=== PATIENT | male | born 1995 | race Caucasian/White ===

== ENCOUNTER 2016-06-18 21:46 | Emergency (ER) | payer BC, MEDICAID ==
[2016-06-18] MEDS ORDERED: ONDANSETRON ODT 4 MG TABLET TL STA (22:23)
[2016-06-18] MEDS ORDERED: ONDANSETRON ODT 4 MG TABLET ONE (22:26)
== END 2016-06-19 00:47 | disposition home or self-care (01) ==
DX: K92.0 Hematemesis (principal); R11.0 Nausea; J45.909 Unspecified asthma, uncomplicated; F17.200 Nicotine dependence, unspecified, uncomplicated
CPT/HCPCS: 36415; 80053; 81003; 83690; 85025; 99283; Q0162

== ENCOUNTER 2016-09-13 12:30 | Emergency (ER) | payer BC ==
[2016-09-13 12:36] VITALS: BP 119/78
--- NOTE | 2016-09-13 12:44 | ED Physician Documentation ---
History of Present Illness - Stated complaint Stated Complaint: MALE - Chief complaint Chief Complaint: General - History obtained from History obtained from: Patient - Additonal information Additional information: Since waking up a few hours ago he's had severe urinary frequency and dysuria without back pain or testicular pain. Not currently sexually active. No history of STD or UTI the Review of Systems Constitutional: denies: Fever, Chills GI: denies: Abdominal Pain, Nausea : reports: Dysuria, Frequency. denies: Hesitancy, Incontinent, Hematuria, Discharge Musculoskeletal: denies: Neck pain, Back pain PD PAST MEDICAL HISTORY - Past Medical History Respiratory: Asthma - Past Surgical History Past Surgical History: No - Present Medications Home Medications: Ambulatory Orders Medication Instructions Recorded Confirmed Doxycycline Hyclate 100 mg PO BID #14 tablet 09/13/16 Phenazopyridine HCl [Pyridium] 200 mg PO TID #6 tablet 09/13/16 - Allergies Allergies/Adverse Reactions: Allergies Allergy/AdvReac Type Severity Reaction Status Date / Time No Known Drug Allergies Allergy Verified 09/13/16 12:49 - Social History Does the pt smoke?: Yes Smoking Status: Current every day smoker Does the pt drink ETOH?: Yes Does the pt have substance abuse?: No PD ED PE NORMAL - Vitals Vital signs reviewed: Yes - General General: Alert and oriented X 3, No acute distress - Abdomen Abdomen: Soft, Non tender - Male Male : Other (No inguinal adenopathy, no discharge, he is circumcised, testicles have normal lie and are nontender. No rashes.) - Neuro Neuro: Alert and oriented X 3, Normal speech - Psych Psych: Normal mood, Normal affect Results - Vitals Vitals: Vital Signs - 24 hr 09/13/16 12:33 Temperature 36.6 C Heart Rate 94 Respiratory 18 Rate Blood Pressure 119/78 O2 Saturation 99 Oxygen O2 Source Room air - Labs Labs: Laboratory Tests 09/13/16 12:44 Urine Color LT. YELLOW Urine Clarity CLEAR Urine pH 7.0 Ur Specific [place] <=1.005 Urine Protein NEGATIVE Urine Glucose (UA) NEGATIVE Urine Ketones NEGATIVE Urine Occult Blood NEGATIVE Urine Nitrite NEGATIVE Urine Bilirubin NEGATIVE Urine Urobilinogen 0.2 (NORMAL) Ur Leukocyte Esterase NEGATIVE Ur Microscopic Review NOT INDICATED Urine Culture Comments NOT INDICATED PD MEDICAL DECISION MAKING - ED course ED course: Symptoms quite consistent with urethritis, UA negative. We'll treat for that. Departure - Departure Disposition: 01 Home, Self Care Clinical Impression: Urethritis Condition: Good Record reviewed to determine appropriate education?: Yes Instructions: ED Urethritis Infec Vs Inflam Male Prescriptions: Doxycycline Hyclate 100 mg PO BID #14 tablet Phenazopyridine HCl [Pyridium] 200 mg PO TID #6 tablet Comments: The pyridium should help with your symptoms while the antibiotics are kicking in. Return if worse or if not better in 2 days time. Followup with your family doctor within the week. As discussed, do not go out in the sun too much while on the antibiotics.
[2016-09-13 12:51] LABS: BILIRUBIN,URINE NEGATIVE (NEGATIVE)
[2016-09-13 12:57] LABS: UA CHARGE (STRIP ONLY) YES; UR CULTURE IF IND NOT INDICATED
[2016-09-13] MEDS ORDERED: cefTRIAXone 250 MG VIAL IM STA (13:15)
[2016-09-13] MEDS ORDERED: PHENAZOPYRIDINE 100 MG TABLET PO STA (13:15)
[2016-09-13] MEDS ORDERED: LIDOCAINE 1% 2 ML VIAL ONE (13:18)
[2016-09-13] MEDS ORDERED: cefTRIAXone 250 MG VIAL ONE (13:18)
[2016-09-13] MEDS ORDERED: PHENAZOPYRIDINE 100 MG TABLET PO ONE (13:18)
== END 2016-09-13 13:31 | disposition home or self-care (01) ==
LOC: ED 12:30
DX: N34.2 Other urethritis (principal); F17.200 Nicotine dependence, unspecified, uncomplicated
CPT/HCPCS: 81003; 87491; 87591; 96372; 99283; A9270; 81001; 87086

== ENCOUNTER 2017-01-27 12:39 | Emergency (ER) | payer BC, MEDICAID ==
[2017-01-27 12:46] VITALS: BP 116/69
[2017-01-27 13:07] LABS: RAPID STREP SCREEN REAGENT QC YELLOW (YELLOW)
--- NOTE | 2017-01-27 14:45 | ED Physician Documentation ---
PD HPI URI - Stated complaint Stated Complaint: THROAT PX - Chief complaint Chief Complaint: Heent - History obtained from History obtained from: Patient - History of Present Illness Timing - onset: How many days ago Timing duration: Days Timing details: Gradual onset, Still present Associated symptoms: Chills, Nasal congestion, Sinus pain, Sore throat. No: Fever, Dry cough, Productive cough, Chest pain Contributing factors: No: Sick contact, Travel, Immunocompromised Similar symptoms before: Has not had sx before Recently seen: Not recently seen Review of Systems Constitutional: reports: Chills, Myalgias. denies: Fever Nose: reports: Congestion, Sinus pressure / pain Throat: reports: Sore throat Respiratory: reports: Cough GI: denies: Nausea, Vomiting, Diarrhea Skin: denies: Rash PD PAST MEDICAL HISTORY - Past Medical History Respiratory: Asthma - Past Surgical History Past Surgical History: No - Present Medications Home Medications: Ambulatory Orders Medication Instructions Recorded Confirmed Doxycycline Hyclate 100 mg PO BID #14 tablet 09/13/16 01/27/17 Phenazopyridine HCl [Pyridium] 200 mg PO TID #6 tablet 09/13/16 01/27/17 Amoxicillin 500 mg PO TID #20 capsule 01/27/17 Cetirizine [ZyrTEC] 10 mg PO DAILY #20 tablet 01/27/17 Dexamethasone [Decadron] 4 mg PO DAILY #5 tablet 01/27/17 HYDROcod/ACETAM 5/325 [[place] 5/325] 1 tab PO Q6H PRN #12 tablet 01/27/17 - Allergies Allergies/Adverse Reactions: Allergies Allergy/AdvReac Type Severity Reaction Status Date / Time No Known Drug Allergies Allergy Verified 09/13/16 12:49 - Social History Does the pt smoke?: Yes Smoking Status: Current every day smoker Does the pt drink ETOH?: Yes Does the pt have substance abuse?: No - Immunizations Immunizations are current?: Yes - POLST Patient has POLST: No PD ED PE NORMAL - Vitals Vital signs reviewed: Yes - General General: Alert and oriented X 3, No acute distress, Well developed/nourished - HEENT HEENT: Ears normal, Moist mucous membranes, Pharynx benign - Neck Neck: Supple, no meningeal sign, Other (anterior nodes) - Cardiac Cardiac: RRR, No murmur - Respiratory Respiratory: Clear bilaterally - Abdomen Abdomen: Soft, Non tender Results - Vitals Vitals: Oxygen O2 Source Room air - Labs Labs: Microbiology 01/27/17 12:57 Group A Strep Throat Culture - Final Throat MIXED OROPHARYNGEAL NOEMI PRESENT. NO BETA STREP PRESENT IN CULTURE. Laboratory Tests 01/27/17 12:57 Group A Strep Rapid Negative PD MEDICAL DECISION MAKING - ED course Complexity details: considered differential (symptoms sound more like coming from sinus infection. ), d/w patient Departure - Departure Disposition: 01 Home, Self Care Clinical Impression: Upper respiratory infection Qualifiers: URI type: unspecified URI Qualified Code(s): J06.9 - Acute upper respiratory infection, unspecified Sinusitis Qualifiers: Sinusitis location: unspecified location Chronicity: acute Recurrence: non- recurrent Qualified Code(s): J01.90 - Acute sinusitis, unspecified Condition: Stable Record reviewed to determine appropriate education?: Yes Instructions: ED Sinusitis Abx Tx Prescriptions: Amoxicillin 500 mg PO TID #20 capsule Cetirizine [ZyrTEC] 10 mg PO DAILY #20 tablet Dexamethasone [Decadron] 4 mg PO DAILY #5 tablet HYDROcod/ACETAM 5/325 [[place] 5/325] 1 tab PO Q6H PRN #12 tablet PRN Reason: Pain Comments: Drink lots of fluids. Continue some ibuprofen 2-3 times a day. Add Tylenol or hydrocodone if needed for pains. For the infection use amoxicillin 3 times a day for a week. Decadron daily for 5 days will decrease the inflammation and help the pain as well. Cetirizine daily for couple of weeks for the congestion. Recheck if not improving over the next several days. Discharge Date/Time: 01/27/17 15:13
== END 2017-01-27 15:13 | disposition home or self-care (01) ==
LOC: ED 12:39
DX: J06.9 Acute upper respiratory infection, unspecified (principal); J01.90 Acute sinusitis, unspecified; J45.909 Unspecified asthma, uncomplicated; F17.200 Nicotine dependence, unspecified, uncomplicated
CPT/HCPCS: 87070; 87430; 99283

== ENCOUNTER 2017-09-15 11:19 | Emergency (ER) | payer BC, MEDICAID ==
--- NOTE | 2017-09-15 12:13 | ED Physician Documentation ---
PD HPI MALE - Stated complaint Stated Complaint: MALE - Chief complaint Chief Complaint: General - History obtained from History obtained from: Patient - History of Present Illness Timing - onset: Today Timing - duration: Days (1) Timing - details: Abrupt onset, Still present Associated symptoms: Dysuria, Urinary frequency. No: Discharge, Genital sore / lesion, Testiclar pain, Scrotal swelling PD HPI MALE CONTRIB FACTORS: Sexually active Similar symptoms before: Diagnosis (urethritis in the past, improved with Doxycycline) Recently seen: Not recently seen Review of Systems Constitutional: denies: Fever, Chills Throat: denies: Sore throat : reports: Dysuria. denies: Discharge Skin: denies: Rash, Lesions PD PAST MEDICAL HISTORY - Past Medical History Past Medical History: Yes Respiratory: Asthma - Past Surgical History Past Surgical History: No - Present Medications Home Medications: Ambulatory Orders Medication Instructions Recorded Confirmed Doxycycline Hyclate 100 mg PO BID #14 tablet 09/13/16 01/27/17 Phenazopyridine HCl [Pyridium] 200 mg PO TID #6 tablet 09/13/16 01/27/17 Amoxicillin 500 mg PO TID #20 capsule 01/27/17 Cetirizine [ZyrTEC] 10 mg PO DAILY #20 tablet 01/27/17 Dexamethasone [Decadron] 4 mg PO DAILY #5 tablet 01/27/17 HYDROcod/ACETAM 5/325 [[place] 5/325] 1 tab PO Q6H PRN #12 tablet 01/27/17 Doxycycline Monohydrate 100 mg PO BID #14 tablet 09/15/17 Phenazopyridine [Pyridium] 100 mg PO TID PRN #15 tablet 09/15/17 - Allergies Allergies/Adverse Reactions: Allergies Allergy/AdvReac Type Severity Reaction Status Date / Time No Known Drug Allergies Allergy Verified 09/13/16 12:49 - Social History Does the pt smoke?: Yes Smoking Status: Current every day smoker Does the pt drink ETOH?: Yes Does the pt have substance abuse?: No - Immunizations Immunizations are current?: No - POLST Patient has POLST: No PD ED PE NORMAL - Vitals Vital signs reviewed: Yes - General General: Alert and oriented X 3, No acute distress, Well developed/nourished - HEENT HEENT: Pharynx benign - Male Male : Other (no sores, no adenopathy. No noted discharge. ) - Rectal Rectal: Deferred - Back Back: No CVA TTP - Derm Derm: Normal color, Warm and dry Results - Vitals Vitals: Oxygen O2 Source Room air - Labs Labs: Laboratory Tests 09/15/17 11:45 Urine Color YELLOW Urine Clarity CLEAR Urine pH 6.0 Ur Specific [place] 1.010 Urine Protein NEGATIVE Urine Glucose (UA) NEGATIVE Urine Ketones NEGATIVE Urine Occult Blood NEGATIVE Urine Nitrite NEGATIVE Urine Bilirubin NEGATIVE Urine Urobilinogen 0.2 (NORMAL) Ur Leukocyte Esterase NEGATIVE Ur Microscopic Review NOT INDICATED Urine Culture Comments NOT INDICATED PD MEDICAL DECISION MAKING - ED course Complexity details: considered differential (urethritis in sexually active male. ), d/w patient - Sepsis Event Vital Signs: Oxygen O2 Source Room air Departure - Departure Disposition: 01 Home, Self Care Clinical Impression: Dysuria, Urethritis, nonspecific Condition: Stable Record reviewed to determine appropriate education?: Yes Instructions: ED Urethritis Infec Vs Inflam Male Prescriptions: Doxycycline Monohydrate 100 mg PO BID #14 tablet Phenazopyridine [Pyridium] 100 mg PO TID PRN #15 tablet PRN Reason: Pain Comments: Drink lots of fluids. Use ibuprofen or naproxen if needed for discomfort. Phenazopyridine can be taken to decrease it discomfort of urination. It asked to numb the bladder and will turn urine slightly orange colored so not to worry. Doxycycline antibiotic twice a day for a week. The symptoms should improve over the next 2-3 days. Recheck if not improving. Forms: Activity restrictions Discharge Date/Time: 09/15/17 13:21
[2017-09-15 12:16] LABS: BILIRUBIN,URINE NEGATIVE (NEGATIVE); GLUCOSE, URINE (UA) NEGATIVE (NEGATIVE); KETONES,URINE (UA) NEGATIVE (NEGATIVE); LEUKOCYTE ESTERASE, URINE NEGATIVE (NEGATIVE); NITRITE,URINE NEGATIVE (NEGATIVE); OCCULT BLOOD,URINE NEGATIVE (NEGATIVE); PROTEIN,URINE NEGATIVE (NEGATIVE); UROBILINOGEN,URINE 0.2 (NORMAL) E.U./dL (NORMAL)
[2017-09-15 12:17] LABS: CLARITY,URINE CLEAR (CLEAR)
[2017-09-15] MEDS ORDERED: PHENAZOPYRIDINE 100 MG TABLET PO STA (12:24)
[2017-09-15] MEDS ORDERED: LIDOCAINE 1% 2 ML VIAL SUBQ ONE (12:24)
[2017-09-15] MEDS ORDERED: DOXYCYCLINE 100 MG TABLET PO STA (12:24)
[2017-09-15] MEDS ORDERED: cefTRIAXone 500 MG VIAL IM STA (12:24)
[2017-09-15 13:16] VITALS: BP 117/67
== END 2017-09-15 13:21 | disposition home or self-care (01) ==
LOC: ED 11:19
DX: R30.0 Dysuria (principal); N34.2 Other urethritis; F17.200 Nicotine dependence, unspecified, uncomplicated
CPT/HCPCS: 81003; 96372; 99283; A9270; 81001; 87086

== ENCOUNTER 2018-04-21 18:48 | Emergency (ER) | payer BC, MEDICAID ==
[2018-04-21] MEDS ORDERED: TETANUS/DIPHTHERIA/PERTUSSIS 0.5 ML SYRINGE IM ONE (19:05)
--- NOTE | 2018-04-21 19:52 | XRAY Report ---
Reason: nail through hand Procedure Date: 04/21/2018 Accession Number: [id number] / [id number] Procedure: XR - Hand 3 View RT CPT Code: FULL RESULT: EXAM: RIGHT HAND RADIOGRAPHY EXAM DATE: 04/21/2018 07:12 PM. CLINICAL HISTORY: Wire through hand. COMPARISON: None. TECHNIQUE: 3 views. FINDINGS: Bones: Normal. No fractures or bone lesions. Joints: Normal. No subluxations. Soft Tissues: No radiopaque foreign body. Soft tissue swelling. IMPRESSION: No radiopaque foreign body RADIA
--- NOTE | 2018-04-21 20:06 | ED Physician Documentation ---
PD HPI UPPER EXT INJURY - Stated complaint Stated Complaint: RT HAND VS NAIL - Chief complaint Chief Complaint: Wound - History obtained from History obtained from: Patient - History of Present Illness Location: Right Type of injury: Puncture wound Where injury occurred: Home Timing - onset: How many minutes ago (30) Timing - duration: Minutes (30) Timing - details: Abrupt onset Pain level max: 5 Pain level now: 3 Severity Comments: mild Improved by: Rest Worsened by: Moving Associated symptoms: No: Weakness, Numbness Contributing factors: No: Anticoagulated, Prior ortho surgery Review of Systems Ten Systems: 10 systems reviewed and negative Constitutional: reports: Reviewed and negative Eyes: reports: Reviewed and negative Ears: reports: Reviewed and negative Nose: reports: Reviewed and negative Throat: reports: Reviewed and negative Cardiac: reports: Reviewed and negative Respiratory: reports: Reviewed and negative GI: reports: Reviewed and negative : reports: Reviewed and negative Skin: reports: Reviewed and negative Musculoskeletal: reports: Reviewed and negative Neurologic: reports: Reviewed and negative Psychiatric: reports: Reviewed and negative Endocrine: reports: Reviewed and negative Immunocompromised: reports: Reviewed and negative PD PAST MEDICAL HISTORY - Past Medical History Past Medical History: Yes Respiratory: Asthma Other Past Medical History: asthma as child - Past Surgical History Past Surgical History: No Other past surgical history: Reviewed and not pertinent - Present Medications Home Medications: Ambulatory Orders Medication Instructions Recorded Confirmed Doxycycline Hyclate 100 mg PO BID #14 tablet 09/13/16 01/27/17 Phenazopyridine HCl [Pyridium] 200 mg PO TID #6 tablet 09/13/16 01/27/17 Amoxicillin 500 mg PO TID #20 capsule 01/27/17 Cetirizine [ZyrTEC] 10 mg PO DAILY #20 tablet 01/27/17 Dexamethasone [Decadron] 4 mg PO DAILY #5 tablet 01/27/17 HYDROcod/ACETAM 5/325 [[place] 5/325] 1 tab PO Q6H PRN #12 tablet 01/27/17 Doxycycline Monohydrate 100 mg PO BID #14 tablet 09/15/17 Phenazopyridine [Pyridium] 100 mg PO TID PRN #15 tablet 09/15/17 Amox/Clav 875/125 [Augmentin] 1 each PO Q12H #20 tablet 04/21/18 - Allergies Allergies/Adverse Reactions: Allergies Allergy/AdvReac Type Severity Reaction Status Date / Time No Known Drug Allergies Allergy Verified 09/13/16 12:49 - Living Situation Living Situation: reports: Alone Living Arrangement: reports: At home - Social History Does the pt smoke?: Yes Smoking Status: Current every day smoker Does the pt drink ETOH?: No Does the pt have substance abuse?: No Substance Use and Type: Marijuana - Family History Family history: reports: Other (Reviewed and not pertinent) - Immunizations Immunizations are current?: No - POLST Patient has POLST: No PD ED PE NORMAL - Vitals Vital signs reviewed: Yes - General General: Alert and oriented X 3, No acute distress - HEENT HEENT: PERRL - Neck Neck: Supple, no meningeal sign - Cardiac Cardiac: RRR, No murmur - Respiratory Respiratory: Clear bilaterally - Abdomen Abdomen: Normal bowel sounds, Soft, Non tender, Non distended - Derm Derm: Warm and dry - Extremities Extremities: Other (Puncture wound to the palm of the right hand.) - Neuro Neuro: Alert and oriented X 3 - Psych Psych: Normal mood, Normal affect Results - Vitals Vitals: Vital Signs - 24 hr 04/21/18 04/21/18 18:50 20:11 Temperature 36.8 C Heart Rate 88 75 Respiratory 16 16 Rate Blood Pressure 125/69 122/71 O2 Saturation 100 100 Oxygen O2 Source Room air - Rads (name of study) Hand XRAY Radiology: Final report received, Other (WNL) PD MEDICAL DECISION MAKING - ED course Complexity details: reviewed results, re-evaluated patient, considered differential, d/w patient, d/w family ED course: 22-year-old male with puncture wound to the right hand. Tetanus updated. Irrigated. Discharge with Augmentin. PCP follow-up. Departure - Departure Disposition: Home, Self Care Clinical Impression: Puncture wound, hand Qualifiers: Encounter type: initial encounter Foreign body presence: with foreign body Laterality: right Qualified Code(s): S61.441A - Puncture wound with foreign body of right hand, initial encounter Condition: Good Instructions: ED Wound Puncture General Follow-Up: Your, pcp [Other] Prescriptions: Amox/Clav 875/125 [Augmentin] 1 each PO Q12H #20 tablet Comments: Antibiotics as prescribed. Follow-up with PCP for recheck within 24 hours. Return with worsening symptoms. Discharge Date/Time: 04/21/18 20:12
[2018-04-21 20:12] VITALS: BP 122/71
== END 2018-04-21 20:12 | disposition home or self-care (01) ==
LOC: ED 18:48
DX: S61.441A Puncture wound with foreign body of right hand, initial encounter (principal); W45.8XXA Other foreign body or object entering through skin, initial encounter; Z23 Encounter for immunization
CPT/HCPCS: 90471; 99283

== ENCOUNTER 2018-04-22 13:49 | Emergency (ER) | payer MEDICAID ==
--- NOTE | 2018-04-22 14:12 | ED Physician Documentation ---
PD HPI WOUND RECHECK - Stated complaint Stated Complaint: WOUND CHECK - Histroy obtained from History obtained from: Patient - History of Present Illness Location: Right Hand Timing - onset: Yesterday Similar symptoms before: Has not had sx before Recently seen: Emergency Dept (had puncture wound from nail into palm yesterday and seen in ED with cleansing and started on abx. Told in instructions to be rechecked within 24 hours. Could not get into PCP so came here. He says it hurts with use. No numbness nor weakness.) Review of Systems Constitutional: denies: Fever, Chills Neurologic: denies: Focal weakness, Numbness PD PAST MEDICAL HISTORY - Past Medical History Respiratory: Asthma - Past Surgical History Past Surgical History: No - Present Medications Home Medications: Ambulatory Orders Medication Instructions Recorded Confirmed Amox/Clav 875/125 [Augmentin] 1 each PO Q12H #20 tablet 04/21/18 Acetaminophen [Tylenol Extra 04/22/18 Strength] Naproxen 500 mg PO BID #20 tablet 04/22/18 - Allergies Allergies/Adverse Reactions: Allergies Allergy/AdvReac Type Severity Reaction Status Date / Time No Known Drug Allergies Allergy Verified 04/22/18 14:13 - Social History Does the pt smoke?: Yes Smoking Status: Current every day smoker Does the pt drink ETOH?: No Does the pt have substance abuse?: No - Immunizations Immunizations are current?: No - POLST Patient has POLST: No PD ED PE NORMAL - Vitals Vital signs reviewed: Yes - General General: Alert and oriented X 3, No acute distress, Well developed/nourished - Derm Derm: Normal color, Warm and dry - Extremities Extremities: Other (right palm with small puncture wound. No redness nor discharge. ) - Neuro Neuro: No motor deficit, No sensory deficit Results - Vitals Vitals: Oxygen O2 Source Room air PD MEDICAL DECISION MAKING - ED course Complexity details: reviewed old records (chart from ER visit. I don't really see any red flags or concerns that led to recommendation to be rechecked in 24 hours. Patient seems okay.), considered differential, d/w patient Departure - Departure Disposition: Home, Self Care Clinical Impression: Visit for wound check Condition: Stable Record reviewed to determine appropriate education?: Yes Instructions: ED Wound Puncture General Prescriptions: Naproxen 500 mg PO BID #20 tablet Comments: Cleanse the area with soap and water and apply ointment 2-3 times a day. You can add an anti-inflammatory such as ibuprofen or naproxen 2-3 times daily for the next several days. I did write a prescription if that is more useful. I presume this will be sore for a few days and then improved. Recheck if signs of infection. Discharge Date/Time: 04/22/18 15:29
[2018-04-22] MEDS ORDERED: NAPROXEN 250 MG TABLET PO STA (15:20)
[2018-04-22 15:29] VITALS: BP 111/67
== END 2018-04-22 15:29 | disposition home or self-care (01) ==
LOC: ED 13:49
DX: S61.431D Puncture wound without foreign body of right hand, subsequent encounter (principal); W45.0XXD Nail entering through skin, subsequent encounter; F17.200 Nicotine dependence, unspecified, uncomplicated
CPT/HCPCS: 99281; 99282; A9270

== ENCOUNTER 2018-12-08 17:07 | Emergency (ER) | payer MEDICAID ==
[2018-12-08 17:12] VITALS: BP 137/94
[2018-12-08] MEDS ORDERED: AMOX/CLAV 875 MG/125 MG TABLET PO STA (17:31)
[2018-12-08] MEDS ORDERED: oxyCODONE 5 MG TABLET PO STA (17:32)
[2018-12-08] MEDS ORDERED: ACETAMINOPHEN 325 MG TABLET PO STA (17:32)
--- NOTE | 2018-12-08 17:34 | ED Physician Documentation ---
History of Present Illness - Stated complaint Stated Complaint: TOOTH PX - Chief complaint Chief Complaint: Heent - Additonal information Additional information: This is a 23-year-old male who presents with dental pain. Patient states that he has not seen a dentist since the time he was a kid, and he has had multiple toothaches for months. The worst pain is in the left upper part of his mouth. He has noticed some erosions along the gumline on the teeth. He has some sensitivity to hot and cold foods. The pain is bad enough now that it now intermittently wakes him up at night. He has an appoint with a dentist next Friday. No fever, chills, neck pain. He has not been on antibiotics recently. No drug use, although patient does smoke cigarettes and he is trying to quit. Review of Systems Constitutional: denies: Fever Throat: reports: Dental pain / toothache Immunocompromised: denies: Immunocompromised PD PAST MEDICAL HISTORY - Past Medical History Respiratory: Asthma - Past Surgical History Past Surgical History: No - Present Medications Home Medications: Ambulatory Orders Medication Instructions Recorded Confirmed Amox/Clav 875/125 [Augmentin] 1 each PO Q12H #20 tablet 04/21/18 Acetaminophen [Tylenol Extra 04/22/18 Strength] Naproxen 500 mg PO BID #20 tablet 04/22/18 Amox/Clav 875/125 [Augmentin] 1 each PO Q12H #14 tablet 12/08/18 Hydrocodone/Acetaminophen 1 - 2 each PO Q6H PRN #5 tablet 12/08/18 [Hydrocodon-Acetaminophen 5-325] - Allergies Allergies/Adverse Reactions: Allergies Allergy/AdvReac Type Severity Reaction Status Date / Time No Known Drug Allergies Allergy Verified 12/08/18 17:11 - Social History Does the pt smoke?: Yes Smoking Status: Current every day smoker Does the pt drink ETOH?: No Does the pt have substance abuse?: No - Immunizations Immunizations are current?: No - POLST Patient has POLST: No PD ED PE NORMAL - Vitals Vital signs reviewed: Yes - General General: Alert and oriented X 3, No acute distress - HEENT HEENT: Other (Generally poor dentition, there are multiple erosions Through the enamel of Multiple teeth, most prominent over teeth 12 And 13. There is no gingival abscess. [place] and gingivitis present. The uvula is midline.) - Neck Neck: Supple, no meningeal sign - Cardiac Cardiac: Other (Warm, well-perfused extremities. Regular rate) - Respiratory Respiratory: No respiratory distress - Abdomen Abdomen: Non distended - Derm Derm: Warm and dry - Extremities Extremities: No deformity - Neuro Neuro: Alert and oriented X 3 - Psych Psych: Normal mood, Normal affect Results - Vitals Vitals: Vital Signs - 24 hr 12/08/18 17:09 Temperature 36.2 C L Heart Rate 73 Respiratory 19 Rate Blood Pressure 137/94 H O2 Saturation 98 Oxygen O2 Source Room air PD MEDICAL DECISION MAKING - ED course ED course: Patient presents with dental pain. He has poor dentition with multiple caries which are likely causing him pulpitis based on his symptoms. He has an appoint with a dentist in 1 week. There are no signs of deep space infection, facial cellulitis, or drainable abscess today. I gave patient 1 dose of oxycodone and acetaminophen here as well as his first dose of Augmentin. I prescribed him a 7-day course of Augmentin which will cover him until he sees his dentist. I also prescribed him a small number of Percocet to be used for breakthrough pain not managed by Tylenol and ibuprofen alone, with instructions on the risks of narcotic medications reviewed. I discussed return precautions including signs of worsening infection, and patient was discharged home. Departure - Departure Disposition: 01 Home, Self Care Clinical Impression: Pain due to dental caries Condition: Good Instructions: ED Tooth Pain Follow-Up: Your,Dentist [Other] (As soon as possible) Prescriptions: Amox/Clav 875/125 [Augmentin] 1 each PO Q12H #14 tablet Hydrocodone/Acetaminophen [Hydrocodon-Acetaminophen 5-325] 1 - 2 each PO Q6H PRN #5 tablet PRN Reason: pain Comments: Please follow-up with your dentist as soon as possible. Take the entire course of antibiotics unless your dentist tells you otherwise. Return to the emergency department if you develop any redness or swelling of your face, inability to open or close your jaw, neck pain, or fever. Do not drink alcohol or drive while taking narcotic pain medication. Note that many narcotic pain relievers also contain Tylenol/acetaminophen. Please ensure that your total dose of acetaminophen from all sources does not exceed 3 g (3000 mg) per day. You may get constipated while on this medication. Take a stool softener such as Colace twice a day while you are on it. Also add an [id number] laxative such as senna or MiraLAX on any day that you do not have a bowel movement. If you received a narcotic pain medication or sedative while in the emergency department, do not drive for the next 12 hours.
== END 2018-12-08 17:46 | disposition home or self-care (01) ==
LOC: ED 17:07
DX: K03.2 Erosion of teeth (principal); K02.9 Dental caries, unspecified; K05.10 Chronic gingivitis, plaque induced; F17.210 Nicotine dependence, cigarettes, uncomplicated
CPT/HCPCS: 99282; 99284; A9270

== ENCOUNTER 2019-01-14 13:23 | Emergency (ER) | payer MEDICAID ==
[2019-01-14 13:37] VITALS: BP 118/70
[2019-01-14] MEDS ORDERED: oxyCODONE 5 MG TABLET PO STA (14:54)
--- NOTE | 2019-01-14 14:56 | ED Physician Documentation ---
History of Present Illness - Stated complaint Stated Complaint: TOOTH PX - Chief complaint Chief Complaint: Heent - History obtained from History obtained from: Patient - History of Present Illness Timing: Other (23-year-old gentleman with ongoing problems with his teeth. He was seen here about a month and a half ago, prescribed oxycodone and Augmentin which helped for a while. Subsequently did follow-up with a dentist, was told he needed 3 root canals and is scheduled for that but not until March. Has a lot of pain from teeth, the worst of which are on the right maxilla. No fevers or facial swelling.) Review of Systems Constitutional: reports: Reviewed and negative Nose: reports: Reviewed and negative Cardiac: reports: Reviewed and negative PD PAST MEDICAL HISTORY - Past Medical History Respiratory: Asthma - Past Surgical History Past Surgical History: No - Present Medications Home Medications: Ambulatory Orders Medication Instructions Recorded Confirmed Amox/Clav 875/125 [Augmentin] 1 each PO Q12H #20 tablet 04/21/18 Acetaminophen [Tylenol Extra 04/22/18 Strength] Naproxen 500 mg PO BID #20 tablet 04/22/18 Amox/Clav 875/125 [Augmentin] 1 each PO Q12H #14 tablet 12/08/18 Hydrocodone/Acetaminophen 1 - 2 each PO Q6H PRN #5 tablet 12/08/18 [Hydrocodon-Acetaminophen 5-325] Amox/Clav 875/125 [Augmentin] 1 each PO Q12H #20 tablet 01/14/19 Oxycodone HCl/Acetaminophen 1 - 2 each PO Q6H PRN #14 tablet 01/14/19 [Percocet 5-325 mg Tablet] - Allergies Allergies/Adverse Reactions: Allergies Allergy/AdvReac Type Severity Reaction Status Date / Time No Known Drug Allergies Allergy Verified 12/08/18 17:11 - Social History Does the pt smoke?: Yes Smoking Status: Current every day smoker Does the pt drink ETOH?: No Does the pt have substance abuse?: No - Immunizations Immunizations are current?: No - POLST Patient has POLST: No PD ED PE NORMAL - Vitals Vital signs reviewed: Yes - General General: Alert and oriented X 3, No acute distress - HEENT HEENT: Other (There is a lot of enamel breakdown along the gumline laterally of right maxillary teeth with some gingivitis. No facial swelling. No trismus. No sublingual edema.) - Neck Neck: Supple, no meningeal sign, No bony TTP - Neuro Neuro: Alert and oriented X 3, Normal speech Results - Vitals Vitals: Vital Signs - 24 hr 01/14/19 13:35 Temperature 36.7 C Heart Rate 71 Respiratory 16 Rate Blood Pressure 118/70 O2 Saturation 100 Oxygen O2 Source Room air Departure - Departure Disposition: Home, Self Care Clinical Impression: Pain due to dental caries Condition: Good Record reviewed to determine appropriate education?: Yes Instructions: ED Tooth Pain Prescriptions: Amox/Clav 875/125 [Augmentin] 1 each PO Q12H #20 tablet Oxycodone HCl/Acetaminophen [Percocet 5-325 mg Tablet] 1 - 2 each PO Q6H PRN #14 tablet PRN Reason: pain Comments: It is very important that you follow-up with a dentist. When it comes to dental problems like yours, the emergency department can only offer a short-term solution to your long-term problem. A couple of low cost options for dental care include: [facility] in [place], calls [phone] for an appointment Or [facility] in [place], call [phone] for an appointment.
== END 2019-01-14 15:10 | disposition home or self-care (01) ==
LOC: ED 13:23
DX: K02.9 Dental caries, unspecified (principal); K05.10 Chronic gingivitis, plaque induced; F17.200 Nicotine dependence, unspecified, uncomplicated
CPT/HCPCS: 99282; 99283; A9270

== ENCOUNTER 2022-03-10 21:26 | Emergency (ER) | payer MEDICAID ==
--- NOTE | 2022-03-10 21:44 | ED Physician Documentation ---
PD HPI HEAD INJURY - Stated complaint Stated Complaint: HIT HEAD/POSS SEIZURE - Chief complaint Chief Complaint: Trauma Hd/Nk - History obtained from History obtained from: Patient - History of Present Illness Mechanism of head injury: Fell Where head injury occurred: Home Timing - onset: Enter time (20:50), Today Pain level now: 5 Location of injury: Left, Front, Back Quality of pain: Pain Associated symptoms: LOC. No: Neck pain, Paresthesias Contributing factors: No: Anticoagulated, Intoxicated Similar symptoms before: Has not had sx before Recently seen: Not recently seen - Additional information Additional information: patient was lying in bed, not quite asleep but "deeply relaxed" (per patient) when he got up to use bathroom. He was standing over the toilet when he felt lightheaded. Does not recall falling but woke on floor. Patient's heard him fall, immediately checked on him and found him unconscious and with generalized muscle tonic contractions, particularly BUE. She says the length of LOC was approximately 15 seconds, but that he then rapidly returned to baseline level of consciousness over the next several seconds. He has no seizure history, no h/o similar (syncopal) episodes. On this HPI, he c/o generalized headache. He thinks his head hit the bathtub and/or the toilet when he fell. Review of Systems Constitutional: reports: Reviewed and negative Eyes: reports: Reviewed and negative Cardiac: reports: Reviewed and negative Respiratory: reports: Reviewed and negative GI: reports: Reviewed and negative Musculoskeletal: reports: Reviewed and negative Neurologic: reports: Syncope, Headache, Head injury. denies: Focal weakness, Numbness PD PAST MEDICAL HISTORY - Past Medical History Respiratory: Asthma - Past Surgical History Past Surgical History: No - Present Medications Home Medications: Ambulatory Orders Medication Instructions Recorded Confirmed Amox/Clav 875/125 [Augmentin] 1 each PO Q12H #20 tablet 04/21/18 Acetaminophen [Tylenol Extra 04/22/18 Strength] Naproxen 500 mg PO BID #20 tablet 04/22/18 Amox/Clav 875/125 [Augmentin] 1 each PO Q12H #14 tablet 12/08/18 Hydrocodone/Acetaminophen 1 - 2 each PO Q6H PRN #5 tablet 12/08/18 [Hydrocodon-Acetaminophen 5-325] Amox/Clav 875/125 [Augmentin] 1 each PO Q12H #20 tablet 01/14/19 Oxycodone HCl/Acetaminophen 1 - 2 each PO Q6H PRN #14 tablet 01/14/19 [Percocet 5-325 mg Tablet] Amox/Clav 875/125 [Augmentin] 1 each PO Q12H #20 tablet 02/16/19 - Allergies Allergies/Adverse Reactions: Allergies Allergy/AdvReac Type Severity Reaction Status Date / Time No Known Drug Allergies Allergy Verified 03/10/22 21:43 - Social History Does the pt smoke?: Yes Smoking Status: Current every day smoker Does the pt drink ETOH?: No Does the pt have substance abuse?: No - Immunizations Immunizations are current?: No - POLST Patient has POLST: No PD ED PE NORMAL - Vitals Vital signs reviewed: Yes - General General: Alert and oriented X 3, No acute distress, Well developed/nourished - HEENT HEENT: PERRL, EOMI, Pharynx benign (no tongue bite/abrasion/echymosis), Other (right forehead swelling, linear abrasion, mild TTP) - Neck Neck: No bony TTP - Cardiac Cardiac: RRR, No murmur, No gallop, No rub - Respiratory Respiratory: No respiratory distress, Clear bilaterally - Abdomen Abdomen: Soft, Non tender - Back Back: No spinal TTP - Derm Derm: Normal color, Warm and dry - Extremities Extremities: No deformity, No tenderness to palpate, Normal ROM s pain - Neuro Neuro: Alert and oriented X 3, 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, No motor deficit, No sensory deficit, Normal speech Eye Opening: Spontaneous Motor: Obeys Commands Verbal: Oriented GCS Score: 15 Results - Vitals Vitals: Vital Signs - 24 hr 03/10/22 03/10/22 03/10/22 21:35 21:37 23:37 Temperature 36.1 C L 36.5 C 36.5 C Heart Rate 68 68 66 Respiratory 18 18 16 Rate Blood Pressure 110/69 110/69 112/72 O2 Saturation 100 100 100 Oxygen O2 Source Room air - EKG (time done) No standard instances Rate: Rate (enter#) (60) Rhythm: NSR [place]: Normal Intervals: Normal DC QRS: Normal Ischemia: Normal ST segments Other comments: Other comments (RSR' V1, V2) - Labs Labs: Laboratory Tests 03/10/22 03/10/22 03/10/22 21:59 21:59 21:59 WBC 8.9 RBC 4.62 L Hgb 14.4 Hct 42.0 MCV 90.9 MCH 31.2 H MCHC 34.3 RDW 12.3 Plt Count 284 MPV 8.8 Neut # (Auto) 6.0 Lymph # (Auto) 1.9 [place] # (Auto) 0.6 Eos # (Auto) 0.5 Baso # (Auto) 0.1 Absolute Nucleated RBC 0.00 Nucleated RBC % 0.0 Sodium 137 Potassium 3.3 L Chloride 100 L Carbon Dioxide 27 Anion Gap 10.0 BUN 17 Creatinine 1.0 Estimated GFR (MDRD) 90 Glucose 153 H POC Whole Bld Glucose Calcium 8.9 Total Bilirubin 0.7 AST 24 ALT 25 Alkaline Phosphatase 45 Troponin I High Sens < 2.3 L Total Protein 7.4 Albumin 4.3 Globulin 3.1 Albumin/Globulin Ratio 1.4 Lipase 40 03/10/22 22:21 WBC RBC Hgb Hct MCV MCH MCHC RDW Plt Count MPV Neut # (Auto) Lymph # (Auto) [place] # (Auto) Eos # (Auto) Baso # (Auto) Absolute Nucleated RBC Nucleated RBC % Sodium Potassium Chloride Carbon Dioxide Anion Gap BUN Creatinine Estimated GFR (MDRD) Glucose POC Whole Bld Glucose 178 H Calcium Total Bilirubin AST ALT Alkaline Phosphatase Troponin I High Sens Total Protein Albumin Globulin Albumin/Globulin Ratio Lipase - Rads (name of study) CT head Radiology: Prelim report reviewed, See rad report PD MEDICAL DECISION MAKING - ED course Complexity details: reviewed results, re-evaluated patient, considered differential, d/w patient, d/w family ED course: Syncopal episode with brief tonic activity which is likely due to brief low-flow cerebral anoxia (due to presumed hypotension). describes rapid return to baseline level of consciousness, and thus no post-ictal phase to support seizure as primary event. He has unremarkable blood test results tonight (mild hypokalemia with k 3.3), including normal hs-cTn. No concerning findings on EKG and CTH is unremarkable (CTH is performed due to the head injury and c/o headache rather than the syncopal episode). He is in NAD during ED stay. Results d/w patient, return precautions reviewed. Departure - Departure Disposition: 01 Home, Self Care Clinical Impression: Hypokalemia Syncope Qualifiers: Syncope type: unspecified Qualified Code(s): R55 - Syncope and collapse Condition: Good Instructions: ED Potassium Deficiency, ED Fainting Unkn Cause Comments: There were no concerning findings on tonight's tests. The CT scan of your head is normal. The EKG has no concerning findings. The blood tests are mostly unremarkable; your potassium was a little low and you were given a dose of potassium (oral) before discharge, but the potassium level is not nearly low enough to have caused your symptoms tonight. Your primary care provider might recommend a recheck of the potassium level in the coming weeks. Discharge Date/Time: 03/10/22 23:37
[2022-03-10 22:04] LABS: BASOPHILS # (AUTO) 0.1 10^3/uL (0.0-0.1); BASOPHILS % (AUTO) 0.6 %; EOSINOPHILS # (AUTO) 0.5 10^3/uL (0.0-0.7); HGB - HEMOGLOBIN 14.4 g/dL (14.0-18.0); LYMPHOCYTES # (AUTO) 1.9 10^3/uL (1.5-3.5); LYMPHOCYTES % (AUTO) 20.9 %; MEAN CORPUSCULAR HEMOGLOBIN 31.2 pg (27.0-31.0); MEAN CORPUSCULAR HGB CONC 34.3 g/dL (32.0-36.0); MEAN CORPUSCULAR VOLUME 90.9 fL (80.0-94.0); MEAN PLATELET VOLUME 8.8 fL (7.4-11.4); MONOCYTES # (AUTO) 0.6 10^3/uL (0.0-1.0); MONOCYTES % (AUTO) 6.5 %; NEUTROPHILS % (AUTO) 66.8 %; PLT - PLATELET COUNT 284 10^3/uL (130-450); RED BLOOD COUNT 4.62 10^6/uL (4.70-6.10); RED CELL DISTRIBUTION WIDTH 12.3 % (12.0-15.0); WHITE BLOOD COUNT 8.9 x10^3/uL (4.8-10.8)
[2022-03-10 22:26] LABS: ALBUMIN 4.3 g/dL (3.2-5.5); ALBUMIN/GLOBULIN RATIO 1.4 (1.0-2.2); BILIRUBIN,TOTAL 0.7 mg/dL (0.2-1.0); CALCIUM 8.9 mg/dL (8.5-10.3); POTASSIUM 3.3 mmol/L (3.5-5.0); TOTAL PROTEIN 7.4 g/dL (6.7-8.2)
--- NOTE | 2022-03-10 22:45 | CT Report ---
PROCEDURE: HEAD WO INDICATIONS: syncope, head injury, headache TECHNIQUE: Noncontrast 4.5 mm thick angled axial sections acquired from the foramen magnum to the vertex. For r adiation dose reduction, the following was used: automated exposure control, adjustment of mA and/or kV according to patient size. COMPARISON: None. FINDINGS: Image quality: Excellent. CSF spaces: Basal cisterns are patent. No extra-axial fluid collections. Ventricles are normal in size and shape. Brain: No intracranial hemorrhage, mass, or mass effect. Rodríguez-white matter interface appears preser janeth. Skull and face: Calvarium and visualized facial bones are intact, without suspicious lesions. Sinuses: Visualized sinuses demonstrate mild mucosal thickening within the ethmoid and mastoid sinus es. Mastoid air cells are clear. IMPRESSION: 1. No acute intracranial abnormality. Reviewed by: Noam Obrien MD on 03/10/2022 10:44 PM [facility] Approved by: Noam Obrien MD on 03/10/2022 10:44 PM [facility] Station ID: [id number]
[2022-03-10] MEDS ORDERED: POTASSIUM CHLORIDE 20 MEQ TABLET PO STA (23:27)
[2022-03-10 23:39] VITALS: BP 112/72
== END 2022-03-10 23:37 | disposition home or self-care (01) ==
LOC: ED 21:26
DX: R55 Syncope and collapse (principal); E87.6 Hypokalemia; F17.200 Nicotine dependence, unspecified, uncomplicated
CPT/HCPCS: 36415; 70450; 80053; 83690; 84484; 85025; 93005; 99284; A9270